=== PATIENT | female | born 1955 | race Caucasian/White ===

== ENCOUNTER → 2017-08-12 | Outpatient (CLI) | payer BC ==
--- NOTE | 2017-08-13 11:33 | MM ---
Reason for exam: screening (asymptomatic). Last mammogram was performed 1 year and 6 months ago. History: Patient is postmenopausal and is nulliparous. Family history of breast cancer in sister at age 40 and breast cancer in aunt at age 63. Took hormonal contraceptives for 2 years beginning at age 22. Physical Findings: A clinical breast exam by your physician is recommended on an annual basis and results should be correlated with mammographic findings. MG Screening Mammo w CAD Bilateral CC and MLO view(s) were taken. Prior study comparison: February 06, 2016, bilateral MG 3d screening mammo w/cad. December 22, 2014, bilateral MG screening mammo w CAD. There are scattered fibroglandular densities. No significant changes when compared with prior studies. ASSESSMENT: Negative, BI-RAD 1 RECOMMENDATION: Routine screening mammogram of both breasts in 1 year.
== END | disposition home or self-care (01) ==
LOC: RADMAMWWP 10:47
PROVIDERS: ATTEND Family Medicine
DX: Z12.31 Encounter for screening mammogram for malignant neoplasm of breast (principal)
CPT/HCPCS: 77067

== ENCOUNTER → 2020-09-14 | Outpatient (CLI) | payer BC ==
[2020-09-14 12:13] LABS: HCT 49.3 % (37.2-46.3); HGB 15.7 g/dL (12.0-15.0); MCH 30.3 pg (27.0-32.0); MCHC 31.8 g/dL (32.0-37.0); MCV 95.2 fL (80.0-97.0); Mean Platelet Volume 12.6 fL (9.5-12.2); Platelet Count 137 X 10*3/uL (140-440); RBC 5.18 X 10*6/uL (4.10-5.20); RDW 12.7 % (11.5-14.5); WBC 8.72 X 10*3/uL (4.50-10.00)
[2020-09-14 13:48] LABS: Erythrocyte Sedimentation Rate 10 mm/Hr (0-30)
[2020-09-14 14:38] LABS: African American GFR (CKD) 90.9 (60.0-200.0); Albumin 4.3 g/dL (3.80-4.90); Albumin/Globulin Ratio 1.72 (1.60-3.17); Anion Gap 8.9 mmol/L (4.00-12.00); BUN/Creat Ratio 28.75 Ratio (12.00-20.00); Calcium 9.3 mg/dL (8.7-10.3); Carbon Dioxide 24.1 mmol/L (21.6-31.8); Chol/HDL Ratio 4.78; Globulin 2.5 g/dL (1.6-3.3); Non-African American GFR(CKD) 78.5 (60.0-200.0); Potassium 4.6 mmol/L (3.5-5.5); Total Bilirubin 0.4 mg/dL (0.3-1.2); Total Protein 6.8 g/dL (6.2-8.2)
[2020-09-14 16:28] LABS: Hemoglobin A1C 5.7 % (4.0-6.0)
== END | disposition home or self-care (01) ==
LOC: LABWHC1 08:11
PROVIDERS: ATTEND Family Medicine
DX: I10 Essential (primary) hypertension (principal); Z79.899 Other long term (current) drug therapy
CPT/HCPCS: 36415; 80053; 80061; 83036; 84443; 85027; 85652

== ENCOUNTER 2020-11-23 10:43 | Day surgery (SDC) | payer BC, MEDICARE ==
[2020-11-22 10:02] VITALS: BMI 32.1
[~2020-11-23 10:43] MED LIST: LACTATED RINGERS 1,000 ML IV SCH
[2020-11-23 11:04] VITALS: TEMP 97.8
[2020-11-23] MEDS ORDERED: LACTATED RINGERS 1,000 ML IV ONE (11:05)
[2020-11-23] MEDS ORDERED: LIDOCAINE 1% INJ 10MG/ML (20 ML MDV) ONE (12:20)
[2020-11-23] MEDS ORDERED: PROPOFOL 10 MG/ML 20 ML VIAL IV ONE (12:20)
--- NOTE | 2020-11-23 12:37 | P.PCN ---
Date of Procedure: 11/23/20 Procedure(s) Performed: BRIEF HISTORY: Patient is a 65-year-old pleasant white female scheduled for an elective colonoscopy as a part of evaluation of prior history of colon polyps. Last endoscopy was 6 years ago. PROCEDURE PERFORMED: Colonoscopy. PREOPERATIVE DIAGNOSIS: History of colon polyps. IV sedation per Anesthesia. PROCEDURE: After informed consent was obtained, the patient, was brought into the endoscopy unit. IV sedation was administered by Anesthesia under continuous monitoring. Digital rectal examination was normal. Initially the Olympus CF-160 flexible video colonoscope was then inserted in the rectum, gradually advanced into the cecum without any difficulty. Careful examination was performed as the scope was gradually being withdrawn. Ileocecal valve and the appendiceal orifice were visualized and appeared normal. Prep was fair.. Mucosa of the cecum, ascending colon, transverse colon, descending colon, sigmoid colon, and rectum appeared normal. Retroflexion was performed in the rectum and no lesions were seen. The patient tolerated the procedure well. IMPRESSION: Normal-appearing colon from rectum to cecum with no evidence of colorectal neoplasia. RECOMMENDATIONS: Findings of this examination were discussed with the patient as well as a family.. She was advised to have a repeat screening colonoscopy in 10 years.
[2020-11-23 12:50] VITALS: RESP 16
[2020-11-23 13:11] VITALS: BP 148/82; PULSE 83
== END 2020-11-23 13:28 | disposition home or self-care (01) ==
LOC: ORWHC2ENDO 10:43
PROVIDERS: ATTEND Internal Medicine Gastroenterology
DX: Z09 Encounter for follow-up examination after completed treatment for conditions other than malignant neoplasm (principal); Z86.010 Personal history of colon polyps; I10 Essential (primary) hypertension; J44.9 Chronic obstructive pulmonary disease, unspecified; F17.210 Nicotine dependence, cigarettes, uncomplicated; Z87.442 Personal history of urinary calculi; F41.9 Anxiety disorder, unspecified; F43.9 Reaction to severe stress, unspecified; Z79.1 Long term (current) use of non-steroidal anti-inflammatories (NSAID); Z79.899 Other long term (current) drug therapy
CPT/HCPCS: 45378; J2001; J2704

== ENCOUNTER → 2021-01-20 | Outpatient (CLI) | payer MEDICARE ==
--- NOTE | 2021-01-20 11:42 | CTL ---
EXAMINATION TYPE: CT Low Dose Lung DATE OF EXAM ORDERED: 01/20/2021 HISTORY: . Lung cancer screening CT DLP: 139.[address] CTDI: 4.00 mGy Automated exposure control for dose reduction was used. SCREENING VISIT: COMPARISON: 09/06/2010 TECHNIQUE: Low dose computed tomography scan was performed through the chest at 1 mm thick sections a nd reconstructed images in multiple planes at 1 mm and [address] DIAGNOSTIC QUALITY: Satisfactory FINDINGS: Emphysematous changes are noted with no evidence of consolidative pneumonia. Biapical pleural thicken ing. No pleural effusion or pneumothorax. Subsegmental atelectasis at both lung bases Hypertrophic and degenerative changes spine. Atherosclerotic change of the aorta. Small hiatal hernia noted. Coronary artery calcification seen. Aorta of normal caliber. Assessment for adenopathy limited by noncontrast technique. Shotty adenopathy in the hilum and medias tinum suspected. Tiny hypodensity involving the dome of the liver is too small to characterize but st able from 2016 and therefore likely related to simple cyst. There is a 6 mm nodule right middle lobe image 176. Additional 2 mm nodule right upper lobe anterior segment image 157. Additional 5 mm vague nodule seen adjacent likely are inflammatory. IMPRESSION: 1. There is a 6 mm nodule with spiculation right upper lobe image 176. Additional nodules as discussed above.. 2. COPD with no sizable pulmonary nodule. 3. Mild coronary artery calcification. CT LUNG RAD AND CT CHEST RECOMMENDATION: Lung-Rad 4X Very Suspicious: Follow-up Chest CT with contras t to assess the spiculation and determine the degree of suspicious nature of the nodule.
== END | disposition home or self-care (01) ==
LOC: RADCTMAIN 10:56
PROVIDERS: ATTEND Family Medicine
DX: Z12.2 Encounter for screening for malignant neoplasm of respiratory organs (principal); J44.9 Chronic obstructive pulmonary disease, unspecified; I25.10 Atherosclerotic heart disease of native coronary artery without angina pectoris; F17.210 Nicotine dependence, cigarettes, uncomplicated
CPT/HCPCS: 71271

== ENCOUNTER → 2021-03-23 | Outpatient (CLI) | payer MEDICARE ==
--- NOTE | 2021-03-23 10:15 | CT ---
EXAMINATION TYPE: CT chest w con DATE OF EXAM: 03/23/2021 COMPARISON: Prior CT January 20, 2021 and older study from 2010 HISTORY: Pulmonary nodule CT DLP: 606 mGycm. Automated Exposure Control for Dose Reduction was Utilized. TECHNIQUE: CT scan of the thorax is performed following with IV Contrast, patient injected with 100 ml mL of Isovue 300. FINDINGS: LUNGS: [id number] underlying emphysematous changes redemonstrated. Scattered small nodules are redemonstrated. Largest nodule anterior right mid to lower lung measures 5 x 5 mm axial image 35 unch anged from 2011 study. No additional new or enlarging greater than 5 mm pulmonary nodules. No pleural effusion or pneumothorax seen bilaterally. MEDIASTINUM: There are nonspecific prominent borderline enlarged anterior right hilar and subcarinal lymph nodes axial image 25. No cardiomegaly or pericardial effusion is seen. OTHER: Metallic density with streak artifact near the duodenal sweep axial image 64 of uncertain etio logy suspect foreign body or postsurgical. Correlate clinically. Prominent borderline enlarged 1.0 x 0.9 cm left axillary lymph node axial image 8 is suspicious with rounded morphology. Follow-up advise d. IMPRESSION: 1. No suspicious new or enlarging greater than 6 mm noncalcified nodules or masses to suggest primary lung malignancy. 2. Attention to left axilla as detailed above. Advise at least targeted ultrasound follow-up. Advise diagnostic bilateral breast mammogram follow-up if has not been performed in last one year.
== END | disposition home or self-care (01) ==
LOC: RADCTMAIN 09:14
PROVIDERS: ATTEND Family Medicine
DX: R91.1 Solitary pulmonary nodule (principal)
CPT/HCPCS: 71260; Q9967

== ENCOUNTER → 2021-04-07 | Outpatient (CLI) | payer MEDICARE ==
--- NOTE | 2021-04-07 10:29 | MM ---
Reason for exam: clinical finding. Last mammogram was performed 3 years and 8 months ago. History: Patient is postmenopausal and is nulliparous. Family history of breast cancer in sister at age 40 and breast cancer in aunt at age 63. Took hormonal contraceptives for 2 years beginning at age 22. Physical Findings: Nurse did not find any significant physical abnormalities on exam. MG 3D Diag Mammo W/Cad BLAIRE Bilateral CC and MLO view(s) were taken. Prior study comparison: August 12, 2017, bilateral MG screening mammo w CAD. February 06, 2016, bilateral MG 3d screening mammo w/cad. There are scattered fibroglandular densities. Bilateral axillary adenopathy, can be covid vaccine related. No significant new findings when compared with previous films. These results were verbally communicated with the patient and result sheet given to the patient on 04/07/21. ASSESSMENT: Benign, BI-RAD 2 RECOMMENDATION: Routine screening mammogram of both breasts in 1 year.
--- NOTE | 2021-04-07 10:30 | USB ---
Reason for exam: clinical finding. History: Patient is postmenopausal and is nulliparous. Family history of breast cancer in sister at age 40 and breast cancer in aunt at age 63. Took hormonal contraceptives for 2 years beginning at age 22. US Breast BILAT Right complete breast ultrasound includes all four quadrants, the retroareolar region and axilla. Finding demonstrates no cystic or solid lesion seen. Left complete breast ultrasound includes all four quadrants, the retroareolar region and axilla. Finding demonstrates two 4mm lymph nodes at the axilla. These results were verbally communicated with the patient and result sheet given to the patient on 04/07/21. ASSESSMENT: Negative, BI-RAD 1 RECOMMENDATION: Routine screening mammogram of both breasts in 1 year. Manage on a clinical basis with regard to axillary lymph nodes.
== END | disposition home or self-care (01) ==
LOC: RADMAMWWP 08:24
PROVIDERS: ATTEND Family Medicine
DX: N64.4 Mastodynia (principal); Z78.0 Asymptomatic menopausal state; Z80.3 Family history of malignant neoplasm of breast
CPT/HCPCS: 77066; 76641; G0279; 77062

== ENCOUNTER → 2021-11-21 | Outpatient (CLI) | payer MEDICARE | END | disposition home or self-care (01) | LOC: LABPAT 14:47 | PROVIDERS: ATTEND Orthopaedic Surgery | DX: Z01.812 Encounter for preprocedural laboratory examination (principal); Z22.322 Carrier or suspected carrier of Methicillin resistant Staphylococcus aureus; M17.12 Unilateral primary osteoarthritis, left knee | CPT/HCPCS: 87070 ==

== ENCOUNTER 2021-11-27 13:08 | Observation (INO) | payer MEDICARE ==
--- NOTE | 2021-11-27 01:03 | HP ---
HISTORY AND PHYSICAL DATE OF SURGERY: Surgery is scheduled for 11/27/2021. HISTORY OF PRESENT ILLNESS: Mary Concepcion is a 66-year-old patient, seen with symptomatic left knee osteoarthritis. We discussed options for treatment. She elected to proceed with left total knee arthroplasty. Consent regarding the procedure was obtained. Medical clearance was provided by Dr. Whitten. PAST MEDICAL HISTORY: Hypertension, hyperlipidemia, asthma. PAST SURGICAL HISTORY: Shoulder arthroscopy, right total hip arthroplasty. DAILY MEDICATIONS: 1. Aspirin. 2. Hydrocodone. 3. Lipitor. 4. Mobic. 5. Norvasc. 6. Singulair. 7. Zyrtec. ALLERGIES: SULFA. SOCIAL HISTORY: She smokes cigarettes. PHYSICAL EVALUATION OF THE LEFT KNEE: Range of motion is negative 3/4 to 120 degrees. Mild effusion. Tenderness to medial joint line. Crepitus, medial patellofemoral compartments with range of motion. Pain with patellofemoral compression. Ligaments stable. Hip rotation without pain. Distal neurovascular exam is intact. RADIOGRAPHS: Radiographs of the left knee reveal severe osteoarthritic changes. IMPRESSION: 1. Left knee osteoarthritis. 2. Hypertension. 3. Hyperlipidemia. 4. Asthma. PLAN: Left total knee arthroplasty. MMODL / IJN: [id number] /
[~2021-11-27 13:08] MED LIST changes: +ACETAMINOPHEN TAB 500 MG TAB PO PRN; -LACTATED RINGERS 1,000 ML IV SCH; +LIDOCAINE 1% (10MG/ML) FOR IV START INTRADERMA PRN; +MELOXICAM 7.5 MG TAB PO PRN; +MIDAZOLAM 2 MG/2 ML VIAL IV PRN; +MORPHINE SULFATE 2 MG/ML SYRINGE IV PRN; +TRANEXAMIC ACID IN NACL,ISO-OS 1,000 MG in SALINE 1 100ML.BAG IVPB PRN
[2021-11-27] MEDS: LACTATED RINGERS 1,000 ML IV SCH ×2 (14:10→21:15)
[2021-11-27] MEDS: ONDANSETRON 4 MG/2 ML VIAL IVP ONE ×2 (14:29→20:42)
[2021-11-27] MEDS: DEXAMETHASONE SOD PHOSPHATE 4 MG/ML 1 ML VIAL IV ONE ×2 (14:29→20:42)
[2021-11-27] MEDS: fentaNYL (PF) 50 MCG/ML 2 ML AMP IV PRN ×3 (14:38→19:06)
[2021-11-27] MEDS ORDERED: ROPIVACAINE 0.2%-NS ON-Q PUMP 1,090 MG, EMPTY PAIN BALL 1 EACH MISCELLANE PRN (14:59)
--- NOTE | 2021-11-27 15:08 | P.ANPRN ---
Procedure Note - Anesthesia - Nerve Block Performed Left Adductor Canal Time Out Performed: Yes (14:37) Date of Procedure: 11/27/21 Procedure Start Time: :37 Procedure Stop Time: 14:46 Location of Patient: PreOp Indication: Acute Post-Operative Pain, Requested by Surgeon (Dr Cardona) Sedation Type: Sedate with meaningful contact maintained Preparation: Sterile Prep, Sterile Dressing Position: Supine Catheter: Indwelling Needle Types: Pajunk Needle Gauge: 21 Ultrasound used to visualize needle placement: Yes Ultrasound used to observe medication spread: Yes Injectate: 0.5% Ropivacaine (see comment for volume) (15cc) Blood Aspirated: No Pain Paresthesia on Injection Noted: No Resistance on Injection: Normal Image Stored and Saved: Yes Events: Uneventful and Well Tolerated
--- NOTE | 2021-11-27 15:10 | P.ANPRN ---
Procedure Note - Anesthesia - Nerve Block Performed Left iPack Time Out Performed: Yes Date of Procedure: 11/27/21 Procedure Start Time: 14:47 Procedure Stop Time: 14:53 Location of Patient: PreOp Indication: Acute Post-Operative Pain, Requested by Surgeon (Dr Cardona) Sedation Type: Sedate with meaningful contact maintained Preparation: Sterile Prep Position: Supine Catheter: None Needle Types: Pajunk Needle Gauge: 21 Ultrasound used to visualize needle placement: Yes Ultrasound used to observe medication spread: Yes Injectate: 0.5% Ropivacaine (see comment for volume) (15cc +5cc PF Normal saline) Blood Aspirated: No Pain Paresthesia on Injection Noted: No Resistance on Injection: Normal Image Stored and Saved: Yes Events: Uneventful and Well Tolerated
[2021-11-27] MEDS ORDERED: ROPIVACAINE 5 MG/ML 30 ML VIAL ONE (16:00)
[2021-11-27] MEDS ORDERED: MIDAZOLAM 2 MG/2 ML VIAL ONE (16:00)
[2021-11-27] MEDS ORDERED: PROPOFOL 10 MG/ML 20 ML VIAL IV ONE (16:00)
[2021-11-27] MEDS ORDERED: TRANEXAMIC ACID IN NACL,ISO-OS 1,000 MG/100 ML BAG ONE (16:00)
[2021-11-27] MEDS ORDERED: SODIUM CHLORIDE 0.9% (PF) 10 ML VIAL ONE (16:00)
[2021-11-27] MEDS ORDERED: HYDROmorphone 1 MG/ML 1 ML SYRINGE IVP PRN (17:36)
[2021-11-27] MEDS ORDERED: HYDROmorphone 0.5 MG/0.5 ML SYRINGE IVP PRN (17:36)
[2021-11-27] MEDS ORDERED: HYDROcodone/APAP 5-325MG 1 EACH TAB PO PRN (17:36)
[2021-11-27] MEDS ORDERED: NALOXONE 0.4 MG/ML 1 ML VIAL IV PRN (17:36)
[2021-11-27] MEDS ORDERED: ONDANSETRON 4 MG/2 ML VIAL IVP PRN (17:36)
--- NOTE | 2021-11-27 17:36 | P.OP ---
Date of Procedure: 11/27/21 Preoperative Diagnosis: Left knee osteoarthritis Postoperative Diagnosis: Left knee osteoarthritis Procedure(s) Performed: Left total knee arthroplasty Implants: 1. Depuy attune size 6 left cruciate retaining cemented femur 2. Depuy attune size 6 fixed bearing cemented tibial baseplate 3. Depuy attune size 6 fixed bearing cruciate retaining 12 mm polyethylene tibial insert 4. Depuy attune 35 mm all polyethylene cemented patella Anesthesia: regional (Adductor canal catheter, Ipack block), spinal Surgeon: Toni Cardona Sample Card Maker #1: Homer Vee Estimated Blood Loss (ml): 45 Pathology: other (Bone) Condition: stable Disposition: PACU Indications for Procedure: 66-year-old patient seen with symptomatic left knee osteoarthritis. After treatment options were discussed, she elected to proceed with total knee a rthroplasty. Operative Findings: See description of procedure Description of Procedure: Patient was taken to the operative suite after having an adductor canal catheter placed by the department of anesthesia as well as an Ipack block for postoperative pain management. Patient underwent a spinal anesthetic by the department of anesthesia. Patient was given preoperative IV intake antibiotics and TXA. A well-padded tourniquet was placed about the left lower extremity. The lower extremity was then prepped and draped in the normal sterile orthopedic fashion. The extremity was elevated, a tourniquet was insufflated to 300. A standard anterior incision was made sharply through skin. Dissection was taken down through the subcutaneous soft tissues down to the extensor mechanism. A medial arthrotomy was performed, patella was everted and knee was flexed. There was advanced osteoarthritis noted. I introduced my distal intramedullary fe moral drill. I then introduced the distal femoral cutting jig. Tony ERICKSON secured the cutting jig with 2 pins. I held retractors in position while Tony ERICKSON performed the distal femoral resection through the guide area we now removed her distal femoral cutting guide. We now placed our 4-in-1 femoral cutting block and positioned and it was secured with 2 pins by Tony ERICKSON while I held the block in position. The distal femoral finishing was now completed. A proximal tibial cutting guide was positioned. I held the guide in the appropriate position with both hands well Tony ERICKSON inserted stabilizing pins into the guide. Proximal tibial cut was made. We now placed a trial femoral component into position, along with an appropriate size tibial tray and insert. We now took the knee through range of motion and had full extension good flexion and good overall soft tissue balance noted. The patella was everted and stabilized with 2 towel clips held by Tony ERICKSON while I performed a flush with patellar quad tendon utilizing a fresh sawblade. We templated the patella, appropriate drill holes were made. An appropriate trial patella was positioned, knee was taken through full range of motion with the patella tracking very nicely. The trial patella was removed. Drill holes were made through the femoral component. All trial components were removed after mar miki off the appropriate rotation of the tibia. Retractors were now positioned along the proximal tibia. An appropriate keel punch was made with the appropriate size tibial guide by myself on Tony ERICKSON assisted by holding retractors. At this point appropriate size implants were chosen and opened. The joint was irrigated copiously with pulse lavage mechanical irrigation. The posterior capsule was infiltrated with local analgesic. The wound was irrigated with pulse lavage mechanical irrigation. We mixed antibiotic methylmethacrylate. We placed the knee into flexion. We placed multiple retractors assisted by Tony ERICKSON to expose the proximal tibia. Once the methyl methacrylate was ready, the tibial component was cemented into place removing any excess methylmethacrylate form by both myself and Tony ERICKSON. The femoral component was cemented into place removing the removing any excess methylmethacrylate performed by both myself and Tony ERICKSON. We then inserted the appropriate size polyethylene tibial insert. We made sure that it was locked into position. We took the knee into full extension, and then back in a flexion making sure we had removed any excess methylmethacrylate. The patellar component was then cemented down and secured with clamp. Excess methylmethacrylate removed. We kept the knee in full extension, patellar clamp in position until methylmethacrylate had hardened. Once it had hardened the patellar clamp was removed. The knee was taken through full range of motion. The patella tracked nicely. There was good soft tissue balancing. The tourniquet was now released. Additional hemostasis was achieved via electrocautery. A second gram of TXA was given. The wound again was irrigated with pulse lavage mechanical irrigation. The superficial soft tissues were infiltrated local analgesic. The extensor mechanism was repaired with Ethibond suture. We checked the repair with range of motion and it was stable. The subcutaneous soft tissues were repaired with Vicryl in layers. The skin was approximated with pernio/Dermabond. Sterile dressings were applied followed by loose web roll and Nigel bandage. The patient was transferred to a bed, and taken to recovery in stable and satisfactory condition. Tony ERICKSON assisted with this complex procedure.
[2021-11-27] MEDS ORDERED: ROPIVACAINE 0.2%-NS ON-Q PUMP 2 MG/ML EACH MISCELLANE ONE (18:08)
--- NOTE | 2021-11-27 18:24 | XR ---
EXAMINATION TYPE: XR knee limited LT DATE OF EXAM: 11/27/2021 6:17 PM INDICATION: Patient age:Female; 66 years old; Reason for study: Evaluation for Postop abnormality and alignment; . COMPARISON: Pre-op 10/06/2021. TECHNIQUE: The Left knee(s) was examined in frontal and lateral projections. FINDINGS: Status post left total knee arthroplasty changes with hardware in appropriate alignment a nd intact. No evidence of fracture. Subcutaneous lucencies and lucencies within the joint consistent with surgical changes. IMPRESSION: Status post total knee arthroplasty changes with hardware intact and appropriate alignment. No fractu res identified.
[2021-11-27] MEDS ORDERED: LACTATED RINGERS 1,000 ML IV ONE ×2 (18:45)
[2021-11-27] MEDS ORDERED: SENNOSIDES-DOCUSATE SODIUM 1 EACH TAB PO SCH (21:00)
[2021-11-27] MEDS: HYDROmorphone 0.5 MG/0.5 ML SYRINGE IVP PRN (22:57)
[2021-11-28] MEDS: HYDROmorphone 0.5 MG/0.5 ML SYRINGE IVP PRN ×2 (02:33→07:38)
[2021-11-28] MEDS: HYDROcodone/APAP 7.5-325MG 1 EACH TAB PO PRN ×2 (04:47→10:03)
[2021-11-28] MEDS: LACTATED RINGERS 1,000 ML IV SCH ×2 (04:49→09:00)
[2021-11-28 08:36] VITALS: BP 137/83; PULSE 76; RESP 18; TEMP 98.8
--- NOTE | 2021-11-28 08:53 | P.PN ---
Progress Note - Text Progress Note Date: 11/28/21 (She watch any resection in the big pump and circumstance [id number]) Anesthesiology Postop day 1 status post total knee arthroplasty with adductor canal catheter. Patient doing well. VAS 6-7 out of 10. Patient states her pain is tolerable Gross strength intact in lower extremity. Afebrile. Denies alterations in sensorium. Catheter site intact. Heart regular rate Lungs nonlabored Abdomen nondistended Assessment: Postop day 1 status post total knee arthroplasty with adductor canal catheter Plan: All questions answered. Maintain catheter 2 more days with patient removal at home. Instructions were given at discharge.
[2021-11-28] MEDS ORDERED: ENOXAPARIN 30 MG/0.3 ML SYRINGE SQ SCH (09:00)
[2021-11-28 10:21] LABS: Basophils # (A) 0.03 X 10*3/uL (0.00-0.10); Basophils % (A) 0.3 %; Eosinophils # (A) 0.02 X 10*3/uL (0.04-0.35); Eosinophils % (A) 0.2 %; HCT 42.6 % (37.2-46.3); HGB 13.7 g/dL (12.0-15.0); Immature Grans, Automated 0.2 %; Lymphocytes # (A) 2.65 X 10*3/uL (0.90-5.00); Lymphocytes % (A) 22.4 %; MCHC 32.2 g/dL (32.0-37.0); MCV 93.2 fL (80.0-97.0); Mean Platelet Volume 12.5 fL (9.5-12.2); Monocytes % (A) 7.6 %; NRBC Per 100 WBC 0 /100 WBCS (0.0-0.0); Neutrophils # (A) 8.23 X 10*3/uL (1.80-7.70); Neutrophils % (A) 69.3 %; Platelet Count 131 X 10*3/uL (140-440); RBC 4.57 X 10*6/uL (4.10-5.20); RDW 12.7 % (11.5-14.5); WBC 11.85 X 10*3/uL (4.50-10.00)
[2021-11-28] MEDS ORDERED: MULTIVITAMINS, THERA 1 EACH TAB PO SCH (12:00)
--- NOTE | 2021-11-28 12:23 | P.PN ---
Subjective Progress Note Date: 11/28/21 Principal diagnosis: Status post left total knee arthroplasty Patient evaluated today at bedside, she is resting in her hospital chair. Patient ambulated well with physical therapy today. Her pain is well- controlled. She is urinating with no difficulties. She denies headaches, lightheadedness, chest pain or shortness of breath. Objective - Vital Signs Vital signs: Vital Signs Temp 98.8 F 11/28/21 08:00 Pulse 76 11/28/21 08:00 Resp 18 11/28/21 08:00 BP 137/83 11/28/21 08:00 Pulse Ox 95 11/28/21 08:00 FiO2 Intake & Output 11/27/21 11/28/21 11/28/21 18:59 06:59 18:59 Intake Total 1050 50 Output Total 45 Balance 1005 50 Weight 83.3 kg 83.3 kg Intake: IV 1050 50 Output: Estimated Blood Loss 45 - Exam Left lower extremity: Incision is clean, dry, and intact. The foam dressing is in good condition. There is minimal soft tissue swelling and ecchymosis surrounding the medial and lateral aspects of the incision. Calf is soft, no tenderness with palpation. Plantar flexion, dorsiflexion, EHL, FHL are intact. Sensory exam to light touch throughout the extremity is intact, dorsal pedis pulses 2+. - Labs CBC & Chem 7: 11/28/21 06:51 Labs: Abnormal Lab Results - Last 24 Hours (Table) 11/28/21 Range/Units 06:51 WBC 11.85 H (4.50-10.00) X 10*3/uL Plt Count 131 L (140-440) X 10*3/uL MPV 12.5 H (9.5-12.2) fL Neutrophils # 8.23 H (1.80-7.70) X 10*3/uL Eosinophils # 0.02 L (0.04-0.35) X 10*3/uL Assessment and Plan Assessment: Postoperative day #1 status post left total knee arthroplasty Plan: Pain control, patient does take pain medication at home, she will resume this once discharged DVT prophylaxis, aspirin 81 mg twice a day for 30 days Wound care instructions were discussed with patient, this to include icing and elevating, showering instructions and use of the On-Q pain catheter Home physical therapy/nursing after discharge Medical recommendations Discharge planning: Patient stable for discharge home today Time with Patient: Less than 30
--- NOTE | 2021-11-28 12:25 | P.DS ---
Providers Date of admission: 11/28/21 08:39 Expected date of discharge: 11/28/21 Attending physician: Toni Cardona Consults: 11/27/21 17:36 Consult Physician Routine Consulting Provider: Selwyn Whitten Reason/Comments: Medical management Do you want consulting provider notified?: Yes Primary care physician: Selwyn Whitten [facility] Course: Date of admission: 11/27/2021 Date of discharge: 11/28/2021 Admission diagnosis: Status post left total knee arthroplasty Discharge diagnosis: Same Attending physician: Dr. Cardona Surgical procedures: Left total knee arthroplasty Brief history: Patient is a 66-year-old female with a history of progressive primary left knee osteoarthritis. At this point patient has failed conservative treatment measures and has opted to proceed with a elective left total knee arthroplasty. Hospital course: Details of patient's surgery can be found in operative report. Patient tolerated the procedure well and was subsequently transported to orthopedic floor. Patient's orthopeidc and medical care was provided daily. Patient had daily laboratory tests performed for evaluation of overall blood counts. Patient had daily physical therapy to include strengthening range of motion as well as education with walker ambulation. Patient was treated with Lovenox for their postoperative DVT prophylaxis during their inpatient stay. Patient was noted to have a relatively uneventful postoperative course. Patient reported satisfactory pain control with oral pain medications by postoperative day 0. Patient showed satisfactory progress with physical therapy. Patient moved steadily through the program and had no difficulty meeting the goals by postoperative day 1. Given patient's otherwise satisfactory course and having met physical therapy goals, plan is to discharge patient home on postoperative day 1. Discharge condition/disposition: Patient will be discharged home in stable condition. Discharge medications: Instructions are given on resumption of patient's normal daily medications per primary care recommendation, in addition patient will be prescribed aspirin 81 mg. Discharge instructions: 1. Wound care and infection precautions, keep incision dry and covered while showering, no lotions, creams, moisturizers. No soaking, tubs, pools, hottubs. Do not scrub over the incision. 2. Weight-bear as tolerated with walker / cane until follow-up. 3. Ice and elevate when necessary. Do not exceed 20 minutes per hour with ice pack. 4. Utilize compression sleeve until seen at first follow up appointment. 5. Visiting nursing care. 6. Home physical therapy including home CPM. 7. Pain meds and anticoagulants per prescription. 8. Pain medication has potential to cause constipation. Increase oral fluid and fiber intake. Contact primary care provider if you have not had a bowel movement within 48 hours after discharge 9. No anti-inflammatory medication until discussed at first post operative visit, this including Motrin, Aleve, Mobic, Diclofenac. 10. Follow up in office at 2 weeks postop with Tony Vee PA-C/Real Wynn 11. Follow up with your primary care doctor 7-10 days after discharge. 12. Contact [facility] with any questions, . Procedures: Left total knee arthroplasty Patient Condition at Discharge: Good Plan - Discharge Summary Discharge Rx Participant: No New Discharge Prescriptions: New Aspirin [Adult Low Dose Aspirin EC] 81 mg PO BID #60 tab No Action HYDROcodone/APAP 10-325MG [Braggs 10-325] 1 tab PO QID PRN PRN Reason: Pain Meloxicam [Mobic] 7.5 mg PO HS DULoxetine HCL [Cymbalta] 60 mg PO HS Montelukast Sodium [Singulair] 10 mg PO DAILY Fish Oil/Dha/Epa [Fish Oil 1,200 mg Fish Oil] 1 cap PO HS Aspirin [Adult Low Dose Aspirin EC] 81 mg PO DAILY Loratadine [Claritin] 10 mg PO HS Multivit with Calcium,Iron,Min [Women's Multivitamin] 1 each PO DAILY hydrOXYzine HCL [Atarax] 10 mg PO DIRECTED PRN PRN Reason: Itching Acetaminophen Tab [Tylenol] 325 caplet PO Q4-6H PRN PRN Reason: pain amLODIPine [Norvasc] 2.5 mg PO HS Discharge Medication List Aspirin [Adult Low Dose Aspirin EC] 81 mg PO DAILY 04/04/15 [History] DULoxetine HCL [Cymbalta] 60 mg PO HS 04/04/15 [History] Fish Oil/Dha/Epa [Fish Oil 1,200 mg Fish Oil] 1 cap PO HS 04/04/15 [History] HYDROcodone/APAP 10-325MG [Braggs 10-325] 1 tab PO QID PRN 04/04/15 [History] Meloxicam [Mobic] 7.5 mg PO HS 04/04/15 [History] Montelukast Sodium [Singulair] 10 mg PO DAILY 04/04/15 [History] Loratadine [Claritin] 10 mg PO HS 04/08/15 [History] Multivit with Calcium,Iron,Min [Women's Multivitamin] 1 each PO DAILY 11/22/20 [History] amLODIPine [Norvasc] 2.5 mg PO HS 11/22/20 [History] hydrOXYzine HCL [Atarax] 10 mg PO DIRECTED PRN 11/23/21 [History] Acetaminophen Tab [Tylenol] 325 caplet PO Q4-6H PRN 11/27/21 [History] Aspirin [Adult Low Dose Aspirin EC] 81 mg PO BID #60 tab 11/28/21 [Rx] Follow up Appointment(s)/Referral(s): Real Springer, PAC [PHYSICIAN CLINICAL STATISTICS MANAGER] - 12/14/21 9:30 am ( ) [facility],Equipment [NON-STAFF] - As Needed (*Please call [facility] once home to arrange delivery of the continuous passive motion (CPM) machine. ) [facility], [NON-STAFF] - 1-2 Days ([facility] will call you to schedule your in home physical therapy and nursing visits. ) Patient Instructions/Handouts: *[facility] - ([facility]) Arthroscopic Knee Post-Op Instructions, *[facility] - On-Q Pain Pump Discharge Instructions, How to Use an Incentive Spirometer (DC) Activity/Diet/Wound Care/Special Instructions: Orthopedic Discharge Instructions: 1. Wound care and infection precautions, keep incision dry and covered while showering, no lotions, creams, moisturizers. No soaking, pools, hot tubs. Do not scrub over incision. 2. Weight-bear as tolerated with walker / cane until follow-up. 3. Ice and elevate when necessary. Do not exceed 20 minutes per hour with ice pack. 4. Utilize compression sleeve until seen at first follow up appointment. 5. Pain meds and anticoagulants per prescription. 6. Pain medication has potential to cause constipation. Increase oral fluid and fiber intake. Contact primary care provider if you have not had a bowel movement within 48 hours after discharge. 7. No anti-inflammatory medication until discussed at first post operative vi sit, this including Motrin, Aleve, Mobic, Diclofenac. 8. Follow up in office at 2 weeks postop with Tony Vee PA-C/Real Springer PA-C 9. Follow up with your primary care doctor 7-10 days after discharge. 10. Contact [facility] with any questions, . Wound care: 1. Okay to remove bandage 12/05/2021 2. Okay to shower directly over the incision after removal of bandage Discharge Disposition: HOME WITH HOME HEALTH SERVICES
== END 2021-11-28 12:34 | disposition home health service (06) ==
LOC: OR 13:08 → 4SSUR 17:46 → OR 11-28 08:39 → 4SSUR 11-28 08:39
PROVIDERS: ADMIT Orthopaedic Surgery; ATTEND Orthopaedic Surgery
DX: M17.12 Unilateral primary osteoarthritis, left knee (principal); I10 Essential (primary) hypertension; E78.5 Hyperlipidemia, unspecified; J45.909 Unspecified asthma, uncomplicated; F17.210 Nicotine dependence, cigarettes, uncomplicated; Z96.641 Presence of right artificial hip joint; Z98.890 Other specified postprocedural states; Z87.442 Personal history of urinary calculi; Z79.1 Long term (current) use of non-steroidal anti-inflammatories (NSAID); Z79.82 Long term (current) use of aspirin; Z79.891 Long term (current) use of opiate analgesic; Z88.2 Allergy status to sulfonamides
CPT/HCPCS: 27447; 97161; 64999; 64448; 76942; 85025; 88300; 73560; G0378; C1776; C1713 ×2; J2250; J1100; J0690 ×2; J2405; J3010; J1650; J1170 ×2; J2795

== ENCOUNTER → 2022-11-22 | Outpatient (CLI) | payer MEDICARE ==
--- NOTE | 2022-11-23 08:52 | MM ---
Reason for Exam: Screening (asymptomatic). Last mammogram was performed 1 year(s) and 8 month(s) ago. Patient History: Menarche at age 14. Patient has no children. Postmenopausal. Hormonal Contraceptives, starting at age 22 for 2 years. Maternal aunt had breast cancer, age 63. Sister had breast cancer, age 40. Risk Values: Monique 5 year model risk: 3.3%. NCI Lifetime model risk: 12.0%. Prior Study Comparison: 12/22/2014 Bilateral Screening Mammogram, [facility]. 02/06/2016 Bilateral Screening Mammogram, [facility]. 08/12/2017 Bilateral Screening Mammogram, [facility]. 04/07/2021 Bilateral Diagnostic Mammogram, [facility]. Tissue Density: The breast tissue is heterogeneously dense. This may lower the sensitivity of mammography. Findings: Analyzed By CAD. There is no suspicious group of microcalcifications or new suspicious mass in either breast. Overall Assessment: Benign, BI-RAD 2 Management: Screening Mammogram of both breasts in 1 year. . Patient should continue monthly self-breast exams. A clinical breast exam by your physician is recommended on an annual basis. This exam should not preclude additional follow-up of suspicious palpable abnormalities. Note on Monique scores and lifetime risk: 1. A Monique score greater than 3% is considered moderate risk. If this is the case, consider specialist referral to assess eligibility for a risk reducing agent. 2. If overall lifetime risk for the development of breast cancer is 20% or higher, the patient may qualify for future screening with alternating mammogram and breast MRI. Electronically signed and approved by: Alphonso Barraza M.D. Radiologis
== END | disposition home or self-care (01) ==
LOC: RADMAMWWP 08:05
PROVIDERS: ATTEND Family Medicine
DX: Z12.31 Encounter for screening mammogram for malignant neoplasm of breast (principal); Z78.0 Asymptomatic menopausal state; Z80.3 Family history of malignant neoplasm of breast
CPT/HCPCS: 77063; 77067

== ENCOUNTER → 2022-11-29 | Outpatient (CLI) | payer MEDICARE ==
--- NOTE | 2022-11-29 10:34 | XR ---
EXAMINATION TYPE: XR ankle complete LT DATE OF EXAM: 11/29/2022 COMPARISON: NONE HISTORY: Pain FINDINGS: Three views of the ankle demonstrate the ankle mortise to be intact and symmetric. The joint spaces are preserved. The osseous structures are intact. Calcaneal spurs noted. Soft tissue edema noted. IMPRESSION: 1. No definite acute fracture or dislocation, if symptoms persist follow-up study in 7 to 10 days wou ld be suggested.
--- NOTE | 2022-11-29 10:40 | CTL ---
EXAMINATION TYPE: CT Low Dose Lung DATE OF EXAM ORDERED: 11/29/2022 HISTORY: . Lung cancer screening CT DLP: [address] CTDI: 2.22 mGy Automated exposure control for dose reduction was used. SCREENING VISIT: COMPARISON: TECHNIQUE: Low dose computed tomography scan was performed through the chest at 1 mm thick sections a nd reconstructed images in multiple planes at 1 mm and [address] DIAGNOSTIC QUALITY: Satisfactory FINDINGS: LUNG NODULES: None. LUNGS: COPD: Severity: Mild upper lobe predominant centrilobular and paraseptal emphysema. There is no focal area of consolidation. Fibrosis: Severity: None Lymph nodes: None. Other findings: None. RIGHT PLEURAL SPACE: Effusion: None Calcification: None Thickening: None Pneumothorax: None LEFT PLEURAL SPACE: Effusion: None Calcification: None Thickening: None Pneumothorax: None HEART: Heart Size: Normal Coronary Calcification: There is mild coronary calcification within the left anterior descending and right coronary arteries. Pericardial Effusion: None OTHER FINDINGS: Upper abdomen: None Bony thorax: None Supraclavicular region: None Other: None IMPRESSION: 1. Negative lung cancer screening examination for significant pulmonary nodules. PICC line 2. Mild emphysema. 3. Mild coronary artery calcifications. CT LUNG RAD AND CT CHEST RECOMMENDATION: Lung-Rad 1 Negative: Continue annual screening with LDCT in 12 months.
== END | disposition home or self-care (01) ==
LOC: RADCTMAIN 09:59
PROVIDERS: ATTEND Family Medicine
DX: Z12.2 Encounter for screening for malignant neoplasm of respiratory organs (principal); M77.32 Calcaneal spur, left foot; J43.9 Emphysema, unspecified; I25.10 Atherosclerotic heart disease of native coronary artery without angina pectoris; F17.210 Nicotine dependence, cigarettes, uncomplicated
CPT/HCPCS: 71271

== ENCOUNTER → 2023-10-04 | Outpatient (CLI) | payer MEDICARE ==
--- NOTE | 2023-10-04 17:27 | CA ---
Transthoracic Echo Report Name: Mary Concepcion Age: 68 Gender: F : 1955 Exam Date: 10/04/2023 13:34 Exam Location: [place] [facility] Ht (in): 64 Wt (lb): 177 Ordering Physician: Selwyn Whitten MD Attending/Referring Phys: Refrigeration System Installer Danika Limon RDCS Procedure CPT: Indications: I50.30 Congestive heart failure Cardiac Hx: Technical Quality: Good Contrast 1: Total Dose (mL): Contrast 2: Total Dose (mL): MEASUREMENTS (Male / Female) Normal Values 2D ECHO LV Diastolic Diameter PLAX 4.0 cm 4.2 - 5.9 / 3.9 - 5.3 cm LV Systolic Diameter PLAX 2.5 cm IVS Diastolic Thickness 1.2 cm 0.6 - 1.0 / 0.6 - 0.9 cm LVPW Diastolic Thickness 1.1 cm 0.6 - 1.0 / 0.6 - 0.9 cm LV Relative Wall Thickness 0.6 RV Internal Dim ED PLAX 2.7 cm LA Systolic Diameter LX 4.1 cm 3.0 - 4.0 / 2.7 - 3.8 cm LV Diastolic Volume MOD BP 61.3 cm??? 67 - 155 / 56 - 104 cm??? LV Systolic Volume MOD BP 23.3 cm??? 22 - 58 / 19 - 49 cm??? LV Ejection Fraction MOD BP 61.9 % >= 55 % LV Cardiac Index MOD BP 1376.0 cm???/min???m??? LV Diastolic Volume MOD 4C 52.0 cm??? LV Systolic Volume MOD 4C 22.9 cm??? LV Ejection Fraction MOD 4C 56.0 % LV Cardiac Index MOD 4C 1056.0 cm???/min???m??? LV Diastolic Length 4C 7.4 cm LV Systolic Length 4C 6.2 cm LV Diastolic Volume MOD 2C 65.6 cm??? LV Systolic Volume MOD 2C 22.7 cm??? LV Ejection Fraction MOD 2C 65.4 % LV Cardiac Index MOD 2C 1556.2 cm???/min???m??? LV Diastolic Length 2C 6.7 cm LV Systolic Length 2C 5.8 cm LA Volume 56.9 cm??? 18 - 58 / 22 - 52 cm??? LA Volume Index 29.5 cm???/m??? 16 - 28 cm???/m??? M-MODE Aortic Root Diameter MM 2.9 cm LA Systolic Diameter MM 3.2 cm LA Ao Ratio MM 1.1 AV Cusp Separation MM 2.4 cm DOPPLER AV Peak Velocity 162.4 cm/s AV Peak Gradient 10.6 mmHg MV Area PHT 2.4 cm??? Mitral E Point Velocity 62.9 cm/s Mitral A Point Velocity 40.5 cm/s Mitral E to A Ratio 1.6 MV Deceleration Time 315.8 ms TR Peak Velocity 246.1 cm/s TR Peak Gradient 24.2 mmHg Right Ventricular Systolic Press 28.2 mmHg FINDINGS Left Ventricle Left ventricular ejection fraction is estimated at 55-60%. Mildly increased septal wall thickness. Mildly increased posterior wall thickness. No obvious regional wall motion abnormalities. Left ventricular cavity size normal. Right Ventricle Normal right ventricular size and function. Right ventricular systolic pressure within normal limits. Right Atrium Mild right atrial dilatation. Left Atrium Mildly increased left atrial diameter. Mildly increased left atrial volume. Mitral Valve Structurally normal mitral valve. Trace to mild mitral regurgitation. Aortic Valve Trileaflet aortic valve. No aortic valve stenosis or regurgitation. Tricuspid Valve Structurally normal tricuspid valve. Mild tricuspid regurgitation. Pulmonic Valve Structurally normal pulmonic valve. Trace pulmonic regurgitation. Pericardium No pericardial or pleural effusion. Aorta Normal size aortic root and proximal ascending aorta. CONCLUSIONS Normal LV function Previewed by: Dr. Raffi Jeronimo MD (Electronically Signed) Final Date: 04 October 2023 17:26
== END | disposition home or self-care (01) ==
LOC: RADECHMAIN 13:24
PROVIDERS: ATTEND Family Medicine
DX: I50.30 Unspecified diastolic (congestive) heart failure (principal)
CPT/HCPCS: 93306

== ENCOUNTER → 2024-01-09 | Outpatient (CLI) | payer MEDICARE ==
--- NOTE | 2024-01-09 10:54 | CTL ---
EXAMINATION TYPE: CT Low Dose Lung DATE OF EXAM ORDERED: 01/09/2024 COMPARISON: 11/29/2022 CLINICAL INDICATION: Female, 68 years old with history of Z12.31 Screening mammogram; Z12.2 Screening ; [facility], Personal hx nicotine dependence, current smoker 1 ppd x 31 years hx COPD., Lung cancer screeni ng, History of Smoking/tobacco use. TECHNIQUE: Low dose computed tomography scan was performed through the chest at 1 mm thick sections a nd reconstructed images in multiple planes at 1 mm and [address] DLP: 105.[address] CTDI: 2.90 mGy Automated exposure control for dose reduction was used. CT DIAGNOSTIC QUALITY: Satisfactory Findings: There are moderate emphysematous changes with an upper lobe predominance. There is a stable 6-7 mm the right middle lobe pulmonary nodule. There is a new cluster of reticular nodular densities in the right middle lobe anteriorly and mediall y. There is no airspace consolidation. There is no abnormal interstitial density. There is no pleural effusion, pleural thickening or pneumothorax. The great vessels the chest are normal and there is no mediastinal, hilar or axillary adenopathy. Limited scanning through the upper abdomen reveals no gross abnormality. No focal osseous lesions are seen. IMPRESSION: 1. Lung RADS category 4A for cluster of reticular nodular densities in the right middle lobe. 3 month follow-up CT is recommended to confirm stability. 2. Moderate emphysematous changes. 3. No acute cardiopulmonary disease. [facility], , 01/09/2024 10:52 AM
--- NOTE | 2024-01-10 12:43 | MM ---
Reason for Exam: Screening (asymptomatic). Last mammogram was performed 1 year(s) and 1 month(s) ago. Patient History: Menarche at age 14. Patient has no children. Postmenopausal. Hormonal Contraceptives, starting at age 22 for 2 years. Maternal aunt had breast cancer, age 63. Sister had breast cancer, age 40. Risk Values: Monique 5 year model risk: 3.3%. NCI Lifetime model risk: 11.5%. Prior Study Comparison: 08/12/2017 Bilateral Screening Mammogram, [facility]. 04/07/2021 Bilateral Diagnostic Mammogram, [facility]. 11/22/2022 Bilateral MG 3D screening mammo w/cad, [facility]. Tissue Density: There are scattered areas of fibroglandular density. Findings: Analyzed By CAD. Right breast: There is no suspicious group of microcalcifications or new suspicious mass. Left breast: There is no suspicious group of microcalcifications or new suspicious mass. Overall Assessment: Negative, BI-RAD 1 Management: Screening Mammogram of both breasts in [address] [facility] will attempt to contact patient to return for supplemental views and ultrasound if indicated. Patient should continue monthly self-breast exams. A clinical breast exam by your physician is recommended on an annual basis. This exam should not preclude additional follow-up of suspicious palpable abnormalities. Note on Monique scores and lifetime risk: 1. A Monique score greater than 3% is considered moderate risk. If this is the case, consider specialist referral to assess eligibility for a risk reducing agent. 2. If overall lifetime risk for the development of breast cancer is 20% or higher, the patient may qualify for future screening with alternating mammogram and breast MRI. [facility], , 01/10/2024 12:40 PM. Electronically signed and approved by: Janes Valencia DO
== END | disposition home or self-care (01) ==
LOC: RADCTMAIN 09:38
PROVIDERS: ATTEND Family Medicine
DX: Z12.31 Encounter for screening mammogram for malignant neoplasm of breast (principal); J43.9 Emphysema, unspecified; Z78.0 Asymptomatic menopausal state; Z80.3 Family history of malignant neoplasm of breast; R92.323 Mammographic fibroglandular density, bilateral breasts; Z12.2 Encounter for screening for malignant neoplasm of respiratory organs; F17.210 Nicotine dependence, cigarettes, uncomplicated; Z87.09 Personal history of other diseases of the respiratory system
CPT/HCPCS: 71271; 77063; 77067

== ENCOUNTER → 2024-10-06 | Outpatient (CLI) | payer MEDICARE, OTHER ==
[2024-10-06 19:09] LABS: HCT 46.0 % (37.2-46.3); HGB 14.6 g/dL (12.0-15.0); MCH 29.1 pg (27.0-32.0); MCHC 31.7 g/dL (32.0-37.0); MCV 91.8 FL (80.0-97.0); NRBC Per 100 WBC 0 X 10*3/uL (0.00-0.01); Platelet Count 157 X 10*3/uL (140-440); RBC 5.01 X 10*6/uL (4.10-5.20); RDW 13.3 % (11.5-14.5); WBC 9.51 X 10*3/uL (4.50-10.00)
[2024-10-06 19:37] LABS: Basophils # (A) 0.06 X 10*3/uL (0.00-0.10); Basophils % (A) 0.6 %; Eosinophils # (A) 0.18 X 10*3/uL (0.04-0.35); Eosinophils % (A) 1.9 %; Immature Grans, Automated 0.20 %; Lymphocytes # (A) 3.62 X 10*3/uL (0.90-5.00); Lymphocytes % (A) 38.1 %; Monocytes # (A) 0.62 X 10*3/uL (0.20-1.00); Monocytes % (A) 6.5 %; Neutrophils # (A) 5.01 X 10*3/uL (1.80-7.70); Neutrophils % (A) 52.7 %; RBC Morphology Normal (Normal)
== END | disposition home or self-care (01) ==
LOC: LABPAT 13:08
PROVIDERS: ATTEND Orthopaedic Surgery
DX: Z01.818 Encounter for other preprocedural examination (principal); Z01.812 Encounter for preprocedural laboratory examination
CPT/HCPCS: 85025